=== PATIENT | female | born 1990 | race Caucasian/White ===

== ENCOUNTER 2023-01-25 22:46 | Emergency (ER) | payer SELFPAY ==
[~2023-01-25] VITALS: Ht 157.5 cm; Wt 80.3 kg
[2023-01-25 23:12] VITALS: BP 124/84
[2023-01-25 23:19] VITALS: BP 124/84
--- NOTE | 2023-01-25 23:21 | NUR ---
PT TAKEN TO BED 6
--- NOTE | 2023-01-25 23:24 | NUR ---
Patient being evaluated by physician at bedside.
--- NOTE | 2023-01-25 23:24 | NUR ---
Dr. Locke examining patient.
[2023-01-25] MEDS ORDERED: CETI10TA71 PO (23:33)
[2023-01-25] MEDS ORDERED: NAPR-54 PO (23:33)
--- NOTE | 2023-01-25 23:38 | NUR ---
32 Y/O F presents with swelling and pain of bilateral hands x1 week. pt stated hands are painful to close. pt stated she has dull chest pain 2/10. pt is [place] speaking only, A&Ox4, skin intact. PMH- pt denies NKA
--- NOTE | 2023-01-25 23:49 | NUR ---
Patient discharged with v/s stable. Written and verbal after care instructions given and explained. Patient alert, oriented and verbalized understanding of instructions. Ambulatory with steady gait. All questions addressed prior to discharge. ID band removed. Patient advised to follow up with PMD. Rx of Cetirizine HCI and Naproxen given. Opportunity to ask questions provided and answered.
--- NOTE | 2023-01-25 23:51 | NUR ---
The patient's care was reviewed and supervised by Marlin Gary RN.
== END 2023-01-25 23:49 | disposition home or self-care (01) ==
LOC: MED 22:46
DX: M79.641 Pain in right hand (principal); M79.642 Pain in left hand
CPT/HCPCS: 99282